=== PATIENT | male | born 1985 | race African-American/Black ===

== ENCOUNTER 2017-06-25 08:21 | Emergency (ER) | payer SELFPAY ==
--- NOTE | 2017-06-25 08:58 | RAD ---
2 VIEWS RIGHT TIBIA AND FIBULA: Date: 06/25/17 COMPARISON: None. HISTORY: Right lower leg pain since last night. FINDINGS: Two views of the right tibia/fibula show no evidence of acute fracture or dislocation. No focal soft tissue swelling is seen. No degenerative changes are seen in the knee or ankle. IMPRESSION: Unremarkable exam. POS: [facility]
== END 2017-06-25 09:55 | disposition home or self-care (01) ==
LOC: ERS 08:21
DX: S80.11XA Contusion of right lower leg, initial encounter (principal); F41.9 Anxiety disorder, unspecified; F17.210 Nicotine dependence, cigarettes, uncomplicated; W10.9XXA Fall (on) (from) unspecified stairs and steps, initial encounter

== ENCOUNTER 2018-01-21 20:06 | Inpatient (IN) | payer SELFPAY ==
[2018-01-21] MEDS ORDERED: Propofol 1,000 MG/100 ML VIAL IV ONE ×2 (20:09→23:07)
[2018-01-21] MEDS ORDERED: fentaNYL Citrate/PF 2,000 MCG in Sodium Chloride 0.9% 60 ML IV SCH (20:13)
[2018-01-21 20:37] LABS: Hemoglobin 15.5 g/dL (14.0-18.0); Mean Corpuscular HGB CONC 33.5 g/dL (32.0-36.0); Mean Corpuscular Hemoglobin 29.4 pg (27.0-31.0); Mean Corpuscular Volume 87.6 fL (78.0-98.0); RBC Distribution Width 12.3 % (11.5-14.5); White Blood Cell (WBC) Count 11.9 thou/uL (4.8-10.8)
[2018-01-21 20:39] LABS: Bilirubin Negative (Negative); Blood, Urine Negative (Negative); Clarity CLEAR (Clear); Glucose, Urine (Dipstick) 100 mg/dL (Negative); Leukocyte Negative (Negative); Nitrite Negative (Negative); Protein, Urine (Dipstick) Negative (Neg-Trace); Specific Gravity, Urine 1.018 (1.002-1.036); Urobilinogen 0.2 mg/dL (0.2-1.0)
[2018-01-21 20:44] LABS: CO2 Tension 40.5 mmHg (35.0-45.0); pH, Arterial 7.41 (7.35-7.45)
[2018-01-21 20:45] LABS: Base Excess (BEa) 0.3 mEq/L (-2.0 to +3.0); Hemoglobin (Hb) 15.1 g/dL (14.0-18.0)
[2018-01-21 20:46] LABS: Analyzer IN Cardio ER; Calcium, Ionized 1.2 mmol/L (1.12-1.30); Puncture Site LRA
[2018-01-21 20:47] LABS: ALV-art Gradient 293.175 (0-20)
[2018-01-21 20:48] LABS: Amphetamine Detected (NotDetected); Barbiturates Screen Not Detected (NotDetected); Benzodiazepine Screen Not Detected (NotDetected); Cocaine Metabolite Screen Not Detected (NotDetected); Medtox Control Line Valid? VALID (VALID); Medtox Reader # READER 1; Methadone Not Detected (NotDetected); Methamphetamine Not Detected (NotDetected); Opiate Screen Not Detected (NotDetected); Oxycodone Screen Not Detected (NotDetected); Phencyclidine (PCP) Not Detected (NotDetected); THC/Cannabinoid Screen Not Detected (NotDetected); Tricyclic Screen Not Detected (NotDetected)
[2018-01-21 20:48] LABS: Acetaminophen Less than 6.0 mcg/mL (10.0-30.0); Alcohol Less than 10 mg/dL (Less than 10); Salicylate Less than 8.0 mg/dL (15.0-30.0)
[2018-01-21 20:50] LABS: ALT (SGPT) 23 U/L (8-55); AST (SGOT) 17 U/L (5-34); Albumin 4.2 g/dL (3.5-5.0); Alkaline Phosphatase 37 U/L (40-150); Anion Gap 14 mmol/L (10-20); BUN (Urea Nitrogen) 8 mg/dL (8.9-20.6); Bilirubin, Total 0.8 mg/dL (0.2-1.2); CK (CPK) 220 U/L (30-200); Calc. Creatinine Clearance 0 mL/min (70-130); Calcium 9.3 mg/dL (7.8-10.44); Carbon Dioxide 22 mmol/L (22-29); Chloride 105 mmol/L (98-107); Estimated GFR-MDRD Greater than 90; Glucose 143 mg/dL (70-105); Potassium 3.6 mmol/L (3.5-5.1); Protein, Total 7.2 g/dL (6.0-8.3); Sodium 137 mmol/L (136-145)
[2018-01-21 20:56] LABS: #Lymphocytes 0.9 thou/uL (1.20-3.40); #Monocytes 0.4 thou/uL (0.11-0.59); #Neutrophils 10.5 thou/uL (1.40-6.50); %Basophils 0.2 % (0.0-1.0); %Eosinophils 0.4 % (0.0-10.0); %Lymphocytes 7.5 % (21.0-51.0); %Monocytes 3.6 % (0.0-10.0); %Neutrophils 88.4 % (42.0-75.0); Mean Platelet Volume 9.7 fL (7.4-10.4); PLT Morphology Comment Appears Decreased; Platelet Count 112 thou/uL (130-400)
--- NOTE | 2018-01-21 21:15 | RAD ---
RADIOGRAPH CHEST 1 VIEW: Date: 01/21/18 Time: 8:25 p.m. HISTORY: 32-year-old male in respiratory failure, status post intubation. Possible drug overdose. COMPARISON: None available. FINDINGS: Endotracheal tube distal tip is at the origin of the right mainstem bronchus. There is a small area o f atelectasis at the medial base of the left lower lobe. This is a supine image, which would be insen sitive for pneumothorax detection. There is a gaseous distention of the stomach. The rest of the visu alized lung yanez are grossly clear. IMPRESSION: 1. endotracheal tube distal tip at the origin of the right mainstem bronchus. 2. At least mild left lower lobe atelectasis (vs aspiration). 3. Gaseous gastric distention. JN [] POS: JIN
--- NOTE | 2018-01-21 21:38 | RAD ---
FRONTAL VIEW CHEST: 01/21/18 COMPARISON: Earlier same day. CLINICAL HISTORY: Intubation, tube adjustment followup. FINDINGS: There is an endotracheal tube present, which has been retracted, with tip at the level of the thoraci c inlet. Enteric catheter traverses to the central abdomen at midline. IMPRESSION: Interval revision of supportive tubes, as above. Incidental note of basilar density on the left, which obscures the left hemidiaphragm. This may rela te to atelectasis and/or component of pneumonia. This is not reliably assessed on the basis of this e xam. Recommend continued chest radiographic followup. POS: [facility]
--- NOTE | 2018-01-21 22:11 | PDOC.FPRHP ---
- History of Present Illness Chief Complaint: Found down, possible overdose History of Present Illness: Patient is a 32YO AAM with a PMH significant for depression, anxiety, suicidal ideation, & ADHD who was brought to the ED by EMS after being found down in his home unresponsive. Per EMS, family called because patient was unresponsive 2/2 a suspected overdose that they presumed to be from Xyprexa as an empty prescription bottle with the patient's name on it was found at the scene. Family provided additional history at the bedside stating that the patient has an extensive psychiatric history as he has problems with anger and has suffered from severe depression for the past four years. The mother stated that the patient has told her several times that he often has thoughts of ending his life. The patient last communicated with his mother around 16:00 today via a phone conversation and stated that he planned to kill himself slowly by taking a bottles pills. The patient was found down by his stepfather around 18:30 today in their home lying on the floor. The stepfather says that he noticed some blood and vomit around his mouth but there was no evidence that he lost control of his bladder or bowels. The stepfather tried shaking and prodding him to arouse him but the patient was totally limp and unresponsive so EMS was called. Per the parents, the patient has never attempted suicide before today and has only has suicidal thoughts. ED Course: Routine labs were drawn including a CBC & CMP. A CK & UDS were also obtained. A CXR & head CT were also done. - Allergies/Adverse Reactions Allergies Allergy/AdvReac Type Severity Reaction Status Date / Time No Known Drug Allergies Allergy Verified 01/22/18 02:11 - Home Medications Medication Instructions Recorded Confirmed Type OLANZapine [Zyprexa] 10 mg PO HS 01/22/18 01/22/18 History - History PMHx: Per family depression, anxiety, possible bipolar or other psychiatric disorder, ADHD & h/o infantile seizures. 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 FHx: Mother- HTN h/o of mental illness in patient's first cousin. Social: Smokes 1/2ppd per chart review. - Review of Systems ROS unobtainable: due to mental status - Vital signs BP: 113/64 HR: 86 RR: Tmax: Pox: 95% on ventilator set on SIMV mode at 15 & PEEP of 5 Wt: 99kg - Physical Exam Constitutional: other (Intubated and sedated. Dried blood and vomitus around mouth and in ventilator tubing.) HEENT: normocephalic and atraumatic, other (Conjunctival injection bilaterally. Pupils fixed and constricted 2/2 sedation.) Heart: RRR, normal S1/S2, no murmurs/rubs/gallops, no edema Lungs: other (Coarse breath sounds throughout 2/2 ventilation.) Abdomen: soft, bowel sounds present, no masses/distention Musculoskeletal: normal structure Skin: no rash/lesions, good turgor Heme/Lymphatic: no unusual bruising or bleeding, no purpura FMR H&P: Results - Labs Result Diagrams: 01/22/18 04:31 01/22/18 04:31 Lab results: WBC 11.9 thou/uL (4.8-10.8) H 01/21/18 20:25 Hgb 15.5 g/dL (14.0-18.0) 01/21/18 20:25 Hct 46.4 % (42.0-52.0) 01/21/18 20:25 MCV 87.6 fL (78.0-98.0) 01/21/18 20:25 Plt Count 112 thou/uL (130-400) L 01/21/18 20:25 Neutrophils % 88.4 % (42.0-75.0) H 01/21/18 20:25 ABG pH 7.41 (7.35-7.45) 01/21/18 20:37 ABG pCO2 40.5 mmHg (35.0-45.0) 01/21/18 20:37 ABG pO2 81.0 mmHg (80.0-100.0) 01/21/18 20:37 Sodium 137 mmol/L (136-145) 01/21/18 20:25 Potassium 3.6 mmol/L (3.5-5.1) 01/21/18 20:25 Chloride 105 mmol/L (98-107) 01/21/18 20:25 Carbon Dioxide 22 mmol/L (22-29) 01/21/18 20:25 BUN 8 mg/dL (8.9-20.6) L 01/21/18 20:25 Creatinine 0.92 mg/dL (0.6-1.3) 01/21/18 20:25 Glucose 143 mg/dL (70-105) H 01/21/18 20:25 Calcium 9.3 mg/dL (7.8-10.44) 01/21/18 20:25 Total Bilirubin 0.8 mg/dL (0.2-1.2) 01/21/18 20:25 AST 17 U/L (5-34) 01/21/18 20:25 ALT 23 U/L (8-55) 01/21/18 20:25 Alkaline Phosphatase 37 U/L (40-150) L 01/21/18 20:25 Creatine Kinase 220 U/L (30-200) H 01/21/18 20:25 Serum Total Protein 7.2 g/dL (6.0-8.3) 01/21/18 20:25 Albumin 4.2 g/dL (3.5-5.0) 01/21/18 20:25 Urine Ketones Negative mg/dL (Negative) 01/21/18 20:28 Urine Blood Negative (Negative) 01/21/18 20:28 Urine Nitrite Negative (Negative) 01/21/18 20:28 Ur Leukocyte Esterase Negative (Negative) 01/21/18 20:28 - Radiology Interpretation Chest x-ray Status: report reviewed by me (Mild LLL atelectasis vs. PNA) CT scan - head Status: report reviewed by me (No acute intracranial findings. Subluxation of L TMJ.) FMR H&P: A/P - Problem List (1) Suicidal behavior with attempted self-injury Current Visit: Yes Status: Acute Code(s): T14.91XA - SUICIDE ATTEMPT, INITIAL ENCOUNTER (2) Overdose Current Visit: Yes Status: Acute Code(s): T50.901A - POISONING BY UNSP DRUG/ MEDS/BIOL SUBST, ACCIDENTAL, INIT Qualifiers: Injury intent: intentional self-harm (3) Depression Current Visit: Yes Status: Chronic Code(s): F32.9 - MAJOR DEPRESSIVE DISORDER, SINGLE EPISODE, UNSPECIFIED (4) ADHD Current Visit: Yes Status: Chronic - Plan 32YO AAM with PMH significant for depression, anxiety, and suicidal ideation who was brought to the ED by EMS after being found down in his home after what appeared to be an attempted suicide attempt by intentional overdose. 1. Overdose: - UDS + only for amphetamines. Overdose was likely with Xyprexa which was found at the scene. - Will continue supportive care with ventilation support and IVFs & wean as tolerated. - Will trend CK & get AM CBC & BMP. - Will consult MR once patient is alert and medically stable. 2. Depression: - No known antidepressant medications. - Will address once patient is alert. 3. Anxiety: - No known anxiolytic medications. - Will address once patient is alert. 4. ADHD: - Do not know dosage of amphetamine patient is prescribed. - Will address once patient is alert. FMR H&P: Upper Level - Plan Date/Time: 01/21/18 2209 I, Roopa Santillan, have evaluated this patient and agree with findings/plan as outlined by international trade teacher resident. Pertinent changes/additions are listed here. 1. Acute hypoxic respiratory failure. - likely secondary to acute intoxication - patient intubated and sedated in the field. - will admit patient to ICU. Pulmonology has been consulted - Vent management per Pulm 2. Acute intoxication - 2/2 intentional overdose of Zyprexa. - continue supportive care. - [facility] consultation when medically stable. DVT Proph: Lovenox. Attending Addendum - Attending Addendum Date/Time: 01/22/18 1700 (please note seen on 01/21, note not sent to me until after the shift) I personally evaluated the patient and discussed the management with Dr. Jimenez and Jacque. I agree with and repeated the History, Examination, Assessment and Plan documented above with any addition or exceptions noted below. Acute encephalopathy with acute hypoxic hypercapneic respiratory failure likely 2/2 zyprexa overdose + suspected amphetamine use -lung protective ventilation, wean sedation and ventilatory support as tolerated -discussed with family in detail at bedside -poison control contacted, supportive care recommended Left TMJ subluxation on CT scan -symmetric jaw on exam with no restriction in motion besides that provided by the rather large bite block -ask RT to reevaluate when change ETT white and will check out to day team as well
--- NOTE | 2018-01-21 22:14 | CT ---
CT BRAIN NONCONTRAST: 01/21/18 HISTORY: 32-year-old male with altered mental status. FINDINGS: There is no midline shift or any other mass effect. There is no evidence of acute intracranial hemor rhage, large cortical infarct, obstructive hydrocephalus, or extraaxial fluid collection. The calvar ium is intact. The left mandibular condyle is anteriorly subluxed relative to the glenoid fossa. This could be due to an open jaw, but this appears to be asymmetrically greater on the left compared to t he right. Clinical correlation is recommended. There is fluid filling the entire nasopharyngeal airwa y, contiguous with such fluid severely partially opacifying the bilateral nasal cavities. IMPRESSION: 1. No acute intracranial findings. 2. Subluxation of left temporomandibular joint. cynthia wright POS: [facility]
[2018-01-21] MEDS ORDERED: CCU Electrolyte Replacement 1 EACH IVPB SCH (22:54)
[2018-01-21] MEDS ORDERED: Ventilator Sedation Protocol 1 EACH FS SCH (23:00)
[2018-01-21] MEDS ORDERED: Lorazepam 2 MG/ML VIAL SLOW IVP PRN (23:06)
[2018-01-21] MEDS ORDERED: Potassium Phosphate 9 MMOL in Sodium Chloride 0.9% 100 ML IVPB PRN (23:06)
[2018-01-21] MEDS ORDERED: Potassium Phosphate 12 MMOL in Sodium Chloride 0.9% 250 ML 250 ML IV PRN (23:06)
[2018-01-21] MEDS ORDERED: Potassium Phosphate 15 MMOL in Sodium Chloride 0.9% 250 ML 250 ML IV PRN (23:06)
[2018-01-21] MEDS ORDERED: Fentanyl BOLUS 250 ML IVPB PRN (23:06)
[2018-01-21] MEDS ORDERED: Potassium Chloride 40 MEQ in Sodium Chloride 0.9% 250 ML 250 ML IVPB PRN (23:06)
[2018-01-21] MEDS ORDERED: Propofol BOLUS 1,000 MG/100 ML VIAL IV PRN (23:06)
[2018-01-21] MEDS ORDERED: Potassium Chloride 20 MEQ TAB PO PRN (23:06)
[2018-01-21] MEDS ORDERED: Magnesium Oxide 400 MG TAB PO PRN ×2 (23:06)
[2018-01-21] MEDS ORDERED: Magnesium 2 GM/NS 0.9% 100 ML 2 GM in Premix Bag 1 BAG IVPB PRN (23:06)
[2018-01-21] MEDS ORDERED: CCU ELECTROLYTE REPLACEMENT PROTOCOL FS PRN (23:06)
[2018-01-21] MEDS ORDERED: DISCONTINUE PREVIOUS NARCOTIC PAIN MEDICATIONS AND BENZODIAZEPINES FS SCH (23:06)
[2018-01-21] MEDS ORDERED: Potassium Chloride 40 MEQ in Premix Bag 1 BAG IVPB PRN (23:06)
[2018-01-22] MEDS: Propofol 1,000 MG/100 ML VIAL IV PRN ×3 (02:00→17:45)
[2018-01-22] MEDS: Lactated Ringer's 1,000 ML IV SCH ×3 (02:49→16:07)
[2018-01-22 05:32] LABS: #Lymphocytes 0.8 thou/uL (1.20-3.40); #Monocytes 0.4 thou/uL (0.11-0.59); %Basophils 0.1 % (0.0-1.0); %Eosinophils 0.5 % (0.0-10.0); %Lymphocytes 10.1 % (21.0-51.0); %Monocytes 4.3 % (0.0-10.0); Hemoglobin 15.1 g/dL (14.0-18.0); Mean Corpuscular HGB CONC 33.7 g/dL (32.0-36.0); Mean Corpuscular Hemoglobin 29.6 pg (27.0-31.0); Mean Corpuscular Volume 87.7 fL (78.0-98.0); Platelet Count 98 thou/uL (130-400); RBC Distribution Width 12.3 % (11.5-14.5); Red Blood Cell (RBC) Count 5.09 mill/uL (4.70-6.10); White Blood Cell (WBC) Count 8.2 thou/uL (4.8-10.8)
[2018-01-22 05:35] LABS: Anion Gap 14 mmol/L (10-20); BUN (Urea Nitrogen) 6 mg/dL (8.9-20.6); CK (CPK) 400 U/L (30-200); Calc. Creatinine Clearance 191 mL/min (70-130); Calcium 8.6 mg/dL (7.8-10.44); Carbon Dioxide 22 mmol/L (22-29); Chloride 108 mmol/L (98-107); Estimated GFR-MDRD Greater than 90; Glucose 87 mg/dL (70-105); Potassium 3.8 mmol/L (3.5-5.1); Sodium 140 mmol/L (136-145)
--- NOTE | 2018-01-22 06:57 | PDOC.FM ---
- Subjective Subjective: This is a 32 yo M here for likely olanzapine overdose due to suicide attempt. Pt intubated and sedated by EMS while in route to ER via air. Since then he remains intubated, however all sedation is off at this time. Otherwise, no change since admission. - Objective MAR Reviewed: Yes Vital Signs & Weight: Vital Signs (12 hours) Temp Pulse Resp BP Pulse Ox 01/22/18 05:57 18 01/22/18 04:00 98.8 F 25 H 01/22/18 02:10 100 123/68 99 01/22/18 02:00 98.6 F 100 15 98 01/22/18 01:50 100 01/21/18 23:03 18 Weight Weight 99.5 kg Most Recent Monitor Data Heart Rate from ECG 103 NIBP 136/88 NIBP BP-Mean 94 Respiration from ECG 24 SpO2 98 I&O: 01/20/18 01/21/18 01/22/18 06:59 06:59 06:59 Intake Total 500 Output Total 800 Balance -300 Result Diagrams: 01/22/18 04:31 01/22/18 04:31 Radiology Reviewed by me: Yes (ET Tube at nadya, possible infiltrate in lower lobes) <Jorge L Vickers - Last Filed: 01/22/18 06:59> - Objective Vital Signs & Weight: Vital Signs (12 hours) Temp Pulse Resp BP Pulse Ox 01/22/18 10:45 104 H 112/66 01/22/18 10:00 20 01/22/18 09:27 111 H 130/80 01/22/18 08:00 103.3 F H 108 H 19 96 01/22/18 07:37 103 H 132/84 01/22/18 07:00 103.3 F H 01/22/18 05:57 18 01/22/18 04:00 98.8 F 25 H 01/22/18 02:10 100 123/68 99 01/22/18 02:00 98.6 F 100 15 98 01/22/18 01:50 100 Weight Admit Weight 99.5 kg Weight 99.5 kg Most Recent Monitor Data Heart Rate from ECG 102 NIBP 97/60 NIBP BP-Mean 73 Respiration from ECG 19 SpO2 96 I&O: 01/21/18 01/22/18 01/23/18 06:59 06:59 06:59 Intake Total 500 Output Total 800 790 Balance -300 -790 Result Diagrams: 01/22/18 04:31 01/22/18 04:31 <VladCharbel Goldie - Last Filed: 01/22/18 12:05> Phys Exam - Physical Examination Intubated, unresponsive to command off sedation. Responds only to pain GCS 5 Pupils pinpoint Respiratory: clear to auscultation bilateral Cardiovascular: RRR, no significant murmur Gastrointestinal: soft, no distention, positive bowel sounds Musculoskeletal: no edema, pulses present GCS 5 as above. Flexion to pain, Corneal reflex intact Skin: no rash, normal turgor <Jorge L Vickers - Last Filed: 01/22/18 06:59> Dx/Plan (1) Overdose Code(s): T50.901A - POISONING BY UNSP DRUG/MEDS/BIOL SUBST, ACCIDENTAL, INIT Status: Acute Qualifiers: Injury intent: intentional self-harm (2) Aspiration pneumonitis Code(s): J69.0 - PNEUMONITIS DUE TO INHALATION OF FOOD AND VOMIT Status: Suspected (3) Suicidal behavior with attempted self-injury Code(s): T14.91XA - SUICIDE ATTEMPT, INITIAL ENCOUNTER Status: Acute (4) TMJ dislocation Code(s): S03.00XA - DISLOCATION OF JAW, UNSPECIFIED SIDE, INITIAL ENCOUNTER Status: Suspected (5) ADHD Status: Chronic (6) Depression Code(s): F32.9 - MAJOR DEPRESSIVE DISORDER, SINGLE EPISODE, UNSPECIFIED Status : Chronic (7) Elevated CK Status: Acute (8) Methamphetamine use Code(s): F15.10 - OTHER STIMULANT ABUSE, UNCOMPLICATED Status: Suspected - Plan Plan: This is a 32 yo M being admitted for suspected olanzapine overdose following suicide attempt. Consults: Pulm, OMFS STABBER Pt is currently not sedated with a GCS of 5. At the time of admission he was sedated with fentanyl and propofol. These were both dc'd aroun 0600 this am. Currently CN reflexes are intact, however pt will only respond to pain. While this may represent continued effects of sedation and olanzapine, pt had hx of seizure while in route to this facility for a significant period of time. These seizures are the most likely source of elevated CK. Continue to monitor status , titrate sedation to RASS of 0-1 if needed. - Sedation: none Resp CXR is concerning for infiltrate, this most likely represents aspiration pneumonitis given hx of seizure and significant food like material suctioned from tube over night. Vitals and WBC count are not consistent with infection at this time. Pt is periodically over breathing the vent - Vent settings: rate 14, 450 ml tidal volume, 10 mm H2o pressure support, 40% O2 CV BP WNL, no murmurs or hx of cardiac hx. GI OG tube in place, consider starting tube feeds today Hematologic H&H stable /Renal Output has averaged over 100 mL/hr. On maintenance rate of 140 ml/hr of LR - I/O: balance -300 mL Infection No current concerns for infection, will continue to monitor development of possible aspiration PNA Lines/Tubes: ET tube in place on 01/22, G[place] in place on 01/22 Code status: Full PPx: SCD, lovenox Dispo: Guarded, will continue to monitor improvement over the course of the day. Will consider weaning off of vent as mental status improves. <Jorge L Vickers - Last Filed: 01/22/18 06:59> Attending Addendum - Attending Addendum Date/Time: 01/22/18 1204 I personally evaluated the patient and discussed the management with Dr. Vickers this morning. I agree with the History, Examination, Assessment and Plan documented above with any addition or exceptions noted below. <Charbel Chu - Last Filed: 01/22/18 12:05>
--- NOTE | 2018-01-22 08:44 | RAD ---
CHEST 1 VIEW: HISTORY: Altered mental status. Respiratory distress. Intubated patient. COMPARISON: 01/21/18. FINDINGS: Portable supine chest radiograph demonstrates endotracheal tube at the level of the clavicles. Nasog astric tube extends beyond the diaphragm. The distal tip is not seen. There is interval development of opacities in the lung parenchyma suggesting pleural effusion with ad jacent parenchymal changes. No pneumothorax on the supine projection. No osseous abnormalities. IMPRESSION: Interval pleural and parenchymal changes. Continued surveillance is recommended. POS: [facility]
[2018-01-22] MEDS: Acetaminophen 650 MG Suppository PR PRN ×3 (08:52→22:30)
[2018-01-22] MEDS: Enoxaparin Sodium 40 MG/0.4 ML SYRINGE SC SCH (09:19)
[2018-01-22] MEDS: Ampicillin/Sulbactam 1.5 GM in Sodium Chloride 0.9% 100 ML IVPB SCH ×3 (12:25→23:00)
--- NOTE | 2018-01-22 21:05 | CON ---
DATE OF CONSULTATION: 01/22/2018 SERVICE: Pulmonary medicine. REASON FOR CONSULTATION: Intubated patient. HISTORY OF PRESENT ILLNESS: Patient is a 32-year-old -[place] male with past medical history significant for major depressive disorder who overdosed on Adderall, and anti-depression medication. Ultimately, he was very obtunded. EMS services were contacted. He was brought to the emergency department and had seizure-like activity enroute. He ultimately got intubated. He never lost pulse or required any chest compressions, but did have respiratory failure. In the emergency department, he was stabilized and subsequently tucked into the ICU. Shortly after presentation, he did have a brief episode of hypotension, but this has subsequently resolved. There has been no other interval changes to his condition over the last 24 hours and we do not have any reports of him being sick prior to this event. PAST MEDICAL HISTORY: 1. Major depressive disorder. 2. Anxiety disorder. 3. Attention deficit hyperactivity disorder. 4. History of seizure disorder such as an infant. PAST SURGICAL HISTORY: Repair of pyloric stenosis. FAMILY HISTORY: Noncontributory. SOCIAL HISTORY: He smokes half pack on daily basis, but otherwise it is unknown. ALLERGIES: No known drug allergies. MEDICATIONS: List of his inpatient medications were reviewed. Multiple updates were made at this time. REVIEW OF SYSTEMS: This cannot be obtained as the patient is currently intubated and sedated. PHYSICAL EXAMINATION: VITAL SIGNS: Afebrile with a T-max 103.3, current temperature 100.2, pulse 70, blood pressure 102/60, respirations 18, saturation 98% on 27% FiO2. HEENT: Normocephalic, atraumatic. Sclerae are white, conjunctivae pink. Oral and nasal mucosa is moist without lesions. LUNGS: Excellent air entry. Rhonchi are present. There is no prolonged expiratory phase or wheezing appreciated. HEART: Normal rate, regular. ABDOMEN: Soft, nontender, nondistended. Bowel sounds are positive. MUSCULOSKELETAL: No cyanosis or clubbing. There is no pitting in the bilateral lower extremities. NEUROLOGIC: Grossly nonfocal. Specifically, the pupils are equal, round, and reactive. They go from 3-2 mm with light. Doll's eyes are normal. He has a normal gag and cough. He is overbreathing the ventilator comfortably. On sedation holiday, he has been witnessed to move all 4 extremities spontaneously , but is not doing anything of purpose yet. He thrashes about but will not follow commands. LABORATORY DATA: WBC 8.2, hemoglobin 15.1, platelets 98,000. PH 7.41, pCO2 of 40, pO2 of 81. Basic metabolic profile is essentially unremarkable. CK is 400 , now up trending. Liver function studies are unremarkable. Urinalysis is negative. Amphetamines are positive on the urine drug screen. That being said , alcohol, acetaminophen, and salicylates are unremarkable. Respiratory culture is negative to date. IMAGING: Chest x-ray demonstrates multifocal infiltrates, which are patchy. There are a little bit worse on the right compared to the left. There is possible volume loss in the right side as well. Enteric catheter courses below the level of the diaphragm. There is an endotracheal tube, which terminates roughly 4 cm above the ramone. CT of brain demonstrates no acute intracranial abnormality. There is subluxation of the left temporomandibular joint. ASSESSMENT: 1. Acute hypoxic respiratory failure. 2. Aspiration pneumonitis versus community-acquired pneumonia likely secondary to overt aspiration. 3. Seizure disorder, possible. 4. Metabolic encephalopathy. 5. Intentional drug overdose with antipsychotic and/or Adderall, DISCUSSION, AND PLAN: We will give the patient another 24 hours to settle down. We will check his mentation in the morning and provide him with a spontaneous breathing trial. If he does well, extubation will be considered. On initiate Unasyn to cover aspiration related disease processes. Pulmonary Critical Care will continue to follow along in this location, but hopefully, he will make a full neurologic recovery. The family is hoping for the best, but understand that in these situations, sometimes the brain does not make a full recovery and only time will tell. Critical care time: 30 minutes. MYRA
[2018-01-23] MEDS: Lactated Ringer's 1,000 ML IV SCH ×3 (01:12→18:23)
[2018-01-23] MEDS: Ampicillin/Sulbactam 1.5 GM in Sodium Chloride 0.9% 100 ML IVPB SCH ×4 (05:00→23:48)
[2018-01-23 05:44] LABS: Anion Gap 14 mmol/L (10-20); BUN (Urea Nitrogen) 6 mg/dL (8.9-20.6); CK (CPK) 370 U/L (30-200); Calc. Creatinine Clearance 164 mL/min (70-130); Calcium 9.2 mg/dL (7.8-10.44); Carbon Dioxide 25 mmol/L (22-29); Chloride 105 mmol/L (98-107); Estimated GFR-MDRD Greater than 90; Glucose 81 mg/dL (70-105); Potassium 3.6 mmol/L (3.5-5.1); Sodium 140 mmol/L (136-145)
[2018-01-23] MEDS: Acetaminophen 650 MG Suppository PR PRN ×2 (05:57→11:05)
[2018-01-23 05:58] LABS: Band 11 % (5-11); Eosinophils 1 % (0-10); Hemoglobin 14.8 g/dL (14.0-18.0); Lymphocytes 7 % (21-51); MDiff Complete? YES; Mean Corpuscular HGB CONC 33.5 g/dL (32.0-36.0); Mean Corpuscular Hemoglobin 29.6 pg (27.0-31.0); Mean Corpuscular Volume 88.4 fL (78.0-98.0); Mean Platelet Volume 10.5 fL (7.4-10.4); Monocytes 2 % (0-10); Neutrophil 79 % (42-75); PLT Morphology Comment Appears Decreased; Platelet Count 88 thou/uL (130-400); RBC Distribution Width 12.4 % (11.5-14.5); White Blood Cell (WBC) Count 14.4 thou/uL (4.8-10.8)
--- NOTE | 2018-01-23 06:47 | PDOC.FM ---
- Subjective Subjective: 32 yo M here with acute toxic encephalopathy and acute hypoxic respiratory failure secondary to Zyprexa overdose. Pt has CPAP trial for 1 hour yesterday. Pt reacts violently and pulls at tubes when given sedation break, however his mentation is minimal at during those times. Thus, pt was sedated. No acute events over night. - Objective MAR Reviewed: Yes Vital Signs & Weight: Vital Signs (12 hours) Temp Pulse Resp BP Pulse Ox 01/23/18 06:00 14 01/23/18 05:30 14 01/23/18 04:49 96 01/23/18 04:00 14 01/23/18 02:40 98 123/81 01/23/18 02:00 14 01/23/18 00:00 17 01/22/18 22:17 101 H 129/72 01/22/18 22:00 18 01/22/18 20:00 101.0 F H 97 14 100 Weight Admit Weight 99.5 kg Weight 99.3 kg Most Recent Monitor Data Heart Rate from ECG 98 NIBP 126/82 NIBP BP-Mean 102 Respiration from ECG 14 SpO2 97 I&O: 01/21/18 01/22/18 01/23/18 06:59 06:59 06:59 Intake Total 500 1927 Output Total 800 2991 Balance -300 -3754 Result Diagrams: 01/23/18 04:48 01/23/18 04:48 <Jorge L Vickers - Last Filed: 01/23/18 07:24> - Objective Vital Signs & Weight: Vital Signs (12 hours) Temp Pulse Resp BP Pulse Ox 01/23/18 12:00 96 01/23/18 10:41 103 H 170/93 H 01/23/18 10:00 13 01/23/18 08:53 111 H 18 99 01/23/18 08:00 100.8 F H 96 14 96 01/23/18 07:40 106 H 122/66 01/23/18 06:00 14 01/23/18 05:30 14 Weight Admit Weight 99.5 kg Weight 99.3 kg Most Recent Monitor Data Heart Rate from ECG 88 NIBP 155/84 NIBP BP-Mean 113 Respiration from ECG 22 SpO2 98 I&O: 01/22/18 01/23/18 01/24/18 06:59 06:59 06:59 Intake Total 500 4119.7 540 Output Total 800 3761 1165 Balance -300 358.7 -625 Result Diagrams: 01/23/18 04:48 01/23/18 04:48 <Charbel Chu - Last Filed: 01/23/18 17:09> Phys Exam - Physical Examination Intubated and sedated Pupils pinpoint and sluggish Neck: no JVD Rales throughout Cardiovascular: no significant murmur tachycardic Gastrointestinal: soft, no distention hypoactive bowel sounds Musculoskeletal: no edema Corneal reflex intact. Withdraws from pain. Otherwise unable to assess Skin: no rash, normal turgor <Jorge L Vickers - Last Filed: 01/23/18 07:24> Dx/Plan (1) Overdose Code(s): T50.901A - POISONING BY UNSP DRUG/MEDS/BIOL SUBST, ACCIDENTAL, INIT Status: Acute Qualifiers: Injury intent: intentional self-harm (2) Suicidal behavior with attempted self-injury Code(s): T14.91XA - SUICIDE ATTEMPT, INITIAL ENCOUNTER Status: Acute (3) TMJ dislocation Code(s): S03.00XA - DISLOCATION OF JAW, UNSPECIFIED SIDE, INITIAL ENCOUNTER Status: Suspected (4) ADHD Status: Chronic (5) Depression Code(s): F32.9 - MAJOR DEPRESSIVE DISORDER, SINGLE EPISODE, UNSPECIFIED Status : Chronic (6) Elevated CK Status: Acute (7) Methamphetamine use Code(s): F15.10 - OTHER STIMULANT ABUSE, UNCOMPLICATED Status: Suspected (8) Toxic encephalopathy Code(s): G92 - TOXIC ENCEPHALOPATHY Status: Acute (9) Acute respiratory failure with hypoxia Code(s): J96.01 - ACUTE RESPIRATORY FAILURE WITH HYPOXIA Status: Acute (10) Aspiration pneumonia Code(s): J69.0 - PNEUMONITIS DUE TO INHALATION OF FOOD AND VOMIT Status: Acute - Plan Plan: This is a 32 yo M being admitted for suspected olanzapine overdose following suicide attempt. 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 Unfortunately, his mentation is not adequate for extubation when not sedated. Cranial reflexes are intact, unclear what philosophy faculty member sequelae of possible anoxic brain injury may exist. Will attempt to reduce sedation again today. Resp Fever and elevated WBC count have developed over the past 24 hours. Pt was started on Unasyn yesterday. Cultures are pending. Pt is periodically over breathing the vent - Vent settings: rate 14, 450 ml tidal volume, 10 mm H2o pressure support, 35% O2 CV BP WNL, no murmurs or hx of cardiac hx. GI OG tube in place, consider starting tube feeds today Hematologic H&H stable /Renal Output has been over 30 mL/hr at times over 100. On maintenance rate of 140 ml/ hr of LR - I/O: balance +300 mL MSK Concern for possible jaw dislocation. Was seen by OMFS yesterday who will re evaluate after extubation Infection Likely aspiration pna, treat as above Lines/Tubes: ET tube in place on 01/22, Gaston in place on 01/22 Code status: Full PPx: SCD, lovenox Dispo: Guarded, will continue to monitor improvement over the course of the day. Will consider weaning off of vent as mental status improves. <Jorge L Vickers - Last Filed: 01/23/18 07:24> Attending Addendum - Attending Addendum Date/Time: 01/23/18 7147 I personally evaluated the patient and discussed the management with Dr. Vickers. I agree with the History, Examination, Assessment and Plan documented above with any addition or exceptions noted below. <Charbel Chu - Last Filed: 01/23/18 17:09>
[2018-01-23] MEDS: Enoxaparin Sodium 40 MG/0.4 ML SYRINGE SC SCH (07:45)
[2018-01-23] MEDS: Propofol 1,000 MG/100 ML VIAL IV PRN (07:45)
--- NOTE | 2018-01-23 08:18 | CON ---
DATE OF CONSULTATION: 01/22/2018 CONSULTING PHYSICIAN: Dr. Bailey. HISTORY OF PRESENT ILLNESS: This is a 32-year-old -[place]ian male with past medical history si gnificant for depression, anxiety, suicidal ideation and ADHD who was found down at home unresponsive . The patient was found by family after having threatened to commit suicide earlier in the day. An empty bottle of Zyprexa was found at the scene and it is felt that this was attempted overdose on. T he patient was intubated and brought to the emergency room for evaluation and subsequently admitted. His head CTs was read out as possibly showing signs of left TMJ subluxation. I was consulted for ev aluation. PAST MEDICAL HISTORY: Per hospital records includes depression, anxiety, possible bipolar or other p sychiatric disorders, ADHD, infantile seizures. PAST SURGICAL HISTORY: Pyloric stenosis. FAMILY HISTORY: Hypertension. SOCIAL HISTORY: Smokes half a pack per day of cigarettes. REVIEW OF SYSTEMS: Unobtainable secondary to patient being intubated and sedated. PHYSICAL EXAMINATION: VITAL SIGNS: Blood pressure 114/76, pulse 97, patient is intubated on the ventilator with oxygen sat uration of 96, respiratory rate 19, temperature 101. GENERAL: The patient is intubated and sedated. Per ICU nursing staff, the patient does not follow c ommands. When sedation is turned off, he does get combative and moves all extremities. HEAD AND NECK: The patient has oral endotracheal tube in place. He has no external signs of facial, neck or oral trauma. On manipulation of the lower jaw, the bilateral condyles appear to be seated i n the fossa and appear to be able to be manipulated both into the rotation and translation type movem ents. On exam, there is no obvious clinical abnormalities. IMAGING: CT scan of the head showed a partial view of the bilateral TM joints with the left condyle sitting anterior along the eminence, but no signs that the condyle was in front of the eminence in an abnormal position. The right condyle appears to be seated in the fossa well. ASSESSMENT: This is a 32-year-old male status post overdose with anterior position of the condyle on CT scan of the head, which appears likely due to him being open with the endotracheal tube and other tubes present in the mouth without any clear signs that the joint is truly subluxated or in patholog ic position or pathologic state. PLAN: 1. There are no signs of any intervention is indicated at this time. 2. If upon extubation, it is felt that the patient needs reevaluation for any sort of jaw abnormalit ies, discomfort, or malposition. Please reconsult me and I will take a look once the oral tubes are out of the way.
--- NOTE | 2018-01-23 08:53 | RAD ---
PORTABLE SEMIUPRIGHT FRONTAL CHEST RADIOGRAPH: 01/23/2018 HISTORY: Ventilated patient. COMPARISON: 01/22/2018 FINDINGS: An endotracheal tube projects over the tracheal column, terminating at the superior margin of the cla vicular heads. The nasogastric tube extends into the left upper quadrant. There is perihilar air sp mikey disease, right greater than left, extending into the right upper, right middle, and right lower l obe regions, as well as into the region of the left lower lobe, stable. IMPRESSION: Nonspecific bilateral air space disease, right greater than left, not significantly changed. POS: [facility]
--- NOTE | 2018-01-23 10:36 | PRG ---
DATE OF SERVICE: 01/23/2018 SERVICE: Pulmonary Medicine INTERVAL HISTORY: The patient is doing fine from a respiratory standpoint. He is breathing comfortably. Oxygen requirements are decreasing. This morning, we will give him a sedation holiday. He is still trying to come around from that. At one point, he sat up with a coughing fit, but after it cleared, he went back to sleep. He does have purposeful activity has been reaching up for his endotracheal tube. Otherwise, there has been no interval change to his condition, and he had no significant events overnight other than a receding temperature profile. LABORATORY: WBC 14.4, hemoglobin 14.8, platelets 88,000. Band count is 11% at this time. Basic metabolic profile is completely unremarkable. His potassium is 3.6. Urinalysis is negative. Urine drug screen is only positive for amphetamines, which likely is associated with the Ritalin. Respiratory culture is growing Staph aureus. Urine culture, blood cultures are otherwise unremarkable. IMAGING: Chest x-ray demonstrates right-sided lung infiltrate with no obvious pleural effusion present. ASSESSMENT: 1. Acute hypoxic respiratory failure. 2. Community-acquired pneumonia, likely a polymicrobial with Staph aureus growing in the culture medium. 3. Metabolic encephalopathy, improving. 4. Seizure disorder, possible. 5. Intentional drug overdose with antipsychotic and/or Adderall. DISCUSSION AND PLAN: We are going to put him on spontaneous breathing trial. We are going to continue a sedation holiday. Hopefully, he will wake up smoothly and we can consider extubating him shortly. I will add a TSH to his laboratories. Potassium will be replaced today with one IV dose. Pulmonary Critical Care will continue to follow along in this location. Critical care time: 30 minutes. MTDD
[2018-01-23] MEDS: Pantoprazole 40 MG VIAL IVP SCH (11:04)
[2018-01-23] MEDS: Haloperidol Lactate 5 MG/ML VIAL IM PRN (16:43)
[2018-01-23] MEDS: Lorazepam 2 MG/ML VIAL SLOW IVP PRN ×2 (16:46→22:59)
[2018-01-23] MEDS ORDERED: Acetaminophen 500 MG TAB PO PRN (17:37)
[2018-01-23] MEDS: Vancomycin HCl 1.5 GM in Sodium Chloride 0.9% 250 ML 300 ML IVPB SCH (18:14)
[2018-01-24] MEDS: Lactated Ringer's 1,000 ML IV SCH (03:39)
[2018-01-24] MEDS: Vancomycin HCl 1.5 GM in Sodium Chloride 0.9% 250 ML 300 ML IVPB SCH (05:33)
[2018-01-24] MEDS: Ampicillin/Sulbactam 1.5 GM in Sodium Chloride 0.9% 100 ML IVPB SCH (05:35)
[2018-01-24 06:27] LABS: Free T4 (Free Thyroxine) 0.99 ng/dL (0.70-1.48)
[2018-01-24 06:28] LABS: Hep C IgG Ab Non-Reactive (NonReactive); Hep C Index 0.16 S/CO (0-0.79)
--- NOTE | 2018-01-24 06:57 | PDOC.FM ---
- Subjective Subjective: Pt was extubated yesterday. During the evening he needed Haldol and ativan to to agitation. This morning pt is drowsy, but abusable. He denies complaints such as pain or SOB. - Objective MAR Reviewed: Yes Vital Signs & Weight: Vital Signs (12 hours) Temp Pulse Resp Pulse Ox 01/24/18 04:00 99.6 F 94 L 01/23/18 23:00 99.8 F H 01/23/18 20:00 99.9 F H 01/23/18 19:26 103.9 F H 117 H 34 H 95 Weight Admit Weight 99.5 kg Weight 95.3 kg Most Recent Monitor Data Heart Rate from ECG 107 NIBP 141/89 NIBP BP-Mean 106 Respiration from ECG 40 SpO2 94 I&O: 01/22/18 01/23/18 01/24/18 06:59 06:59 06:59 Intake Total 500 4119.7 2256 Output Total 800 3761 3985 Balance -300 358.7 -1729 Result Diagrams: 01/23/18 04:48 01/23/18 04:48 <Jorge L Vickers - Last Filed: 01/24/18 06:54> - Objective Vital Signs & Weight: Vital Signs (12 hours) Temp Pulse Resp Pulse Ox 01/25/18 07:26 98.9 F 95 24 H 96 01/25/18 04:00 99.0 F 01/25/18 00:00 99.8 F H Weight Admit Weight 99.5 kg Weight 95.3 kg Most Recent Monitor Data Heart Rate from ECG 80 NIBP 143/82 NIBP BP-Mean 114 Respiration from ECG 34 SpO2 91 I&O: 01/24/18 01/25/18 01/26/18 06:59 06:59 06:59 Intake Total 2256 2033 240 Output Total 3985 1175 Balance -1729 858 240 Result Diagrams: 01/25/18 04:47 01/25/18 04:47 <Charbel Chu - Last Filed: 01/25/18 10:31> Phys Exam - Physical Examination Constitutional: NAD HEENT: moist MMs Respiratory: clear to auscultation bilateral Cardiovascular: no significant murmur tachycardic Gastrointestinal: soft, non-tender, no distention, positive bowel sounds Musculoskeletal: no edema Neurological: moves all 4 limbs Deviation from normal: A&O x2 Skin: no rash, normal turgor <Jorge L Vickers - Last Filed: 01/24/18 06:54> Dx/Plan (1) Overdose Code(s): T50.901A - POISONING BY UNSP DRUG/MEDS/BIOL SUBST, ACCIDENTAL, INIT Status: Acute Qualifiers: Injury intent: intentional self-harm (2) Suicidal behavior with attempted self-injury Code(s): T14.91XA - SUICIDE ATTEMPT, INITIAL ENCOUNTER Status: Acute (3) TMJ dislocation Code(s): S03.00XA - DISLOCATION OF JAW, UNSPECIFIED SIDE, INITIAL ENCOUNTER Status: Suspected (4) ADHD Status: Chronic (5) Depression Code(s): F32.9 - MAJOR DEPRESSIVE DISORDER, SINGLE EPISODE, UNSPECIFIED Status : Chronic (6) Elevated CK Status: Acute (7) Methamphetamine use Code(s): F15.10 - OTHER STIMULANT ABUSE, UNCOMPLICATED Status: Suspected (8) Toxic encephalopathy Code(s): G92 - TOXIC ENCEPHALOPATHY Status: Acute (9) Acute respiratory failure with hypoxia Code(s): J96.01 - ACUTE RESPIRATORY FAILURE WITH HYPOXIA Status: Acute (10) Aspiration pneumonia Code(s): J69.0 - PNEUMONITIS DUE TO INHALATION OF FOOD AND VOMIT Status: Acute (11) Low TSH level Code(s): R79.89 - OTHER SPECIFIED ABNORMAL FINDINGS OF BLOOD CHEMISTRY Status : Acute - Plan Plan: This is a 32 yo M being admitted for suspected olanzapine overdose following suicide attempt. 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 No obvious focal deficit at this time, however it is difficult for pt to comply with all evaluation due to level of sedation due to ativan. Will avoid sedatives today and attempt a more thorough evaluation. Resp Pt is off of vent and maintaining O2 sats well. Fever resolved over night. Due to preliminary sputum cultures growing staph aureus, abx were escalated to vanc while sensitivities result. CV BP WNL, no murmurs or hx of cardiac hx. GI OG tube in place, consider starting tube feeds today Hematologic H&H stable /Renal Gaston has been dc'd. Urinary output is good. MSK Concern for possible jaw dislocation. Eval by OMFS pending. Infection Likely aspiration pna, treat as above Endo TSH noted to be low, free T4 pending. This will likely need further work up outpt Lines/Tubes: ET tube in place on 01/22 dc 01/24, Gaston in place on 01/22 dc 01/24 Code status: Full PPx: SCD, lovenox Dispo: Stable. Pt is recovering well at this time. Expect to continue to treat PNA and consult MR for likely psych placement in the next 24-48 hours. <Jorge L Vickers - Last Filed: 01/24/18 06:54> Attending Addendum - Attending Addendum Date/Time: 01/25/18 1028 I personally evaluated the patient and discussed the management with Dr. Dr. Vickers on 01/24/18. I agree with the History, Examination, Assessment and Plan documented above with any addition or exceptions noted below. Correction: Pt is arousable, not abusable. <Charbel Chu - Last Filed: 01/25/18 10:31>
[2018-01-24 07:05] LABS: Hemoglobin 13.3 g/dL (14.0-18.0); Mean Corpuscular HGB CONC 33.7 g/dL (32.0-36.0); Mean Corpuscular Hemoglobin 29.3 pg (27.0-31.0); Mean Platelet Volume 11.5 fL (7.4-10.4); Platelet Count 95 thou/uL (130-400); Red Blood Cell (RBC) Count 4.55 mill/uL (4.70-6.10); White Blood Cell (WBC) Count 14.5 thou/uL (4.8-10.8)
[2018-01-24 07:48] LABS: Anion Gap 13 mmol/L (10-20); BUN (Urea Nitrogen) 6 mg/dL (8.9-20.6); Calc. Creatinine Clearance 142 mL/min (70-130); Calcium 9.5 mg/dL (7.8-10.44); Carbon Dioxide 23 mmol/L (22-29); Chloride 105 mmol/L (98-107); Estimated GFR-MDRD Greater than 90; Glucose 111 mg/dL (70-105); Sodium 138 mmol/L (136-145)
[2018-01-24 07:53] LABS: Potassium 2.9 mmol/L (3.5-5.1)
[2018-01-24] MEDS: Pantoprazole 40 MG VIAL IVP SCH (08:36)
[2018-01-24] MEDS: Enoxaparin Sodium 40 MG/0.4 ML SYRINGE SC SCH (08:46)
[2018-01-24 09:26] LABS: Band 11 % (5-11); Lymphocytes 3 % (21-51); Monocytes 5 % (0-10); Neutrophil 80 % (42-75); Reactive Lymphocytes 1 % (0-10)
[2018-01-24 09:27] LABS: PLT Morphology Comment Appears Decreased
--- NOTE | 2018-01-24 09:53 | PRG ---
DATE OF SERVICE: 01/24/2018 SERVICE: Pulmonary Medicine. INTERVAL HISTORY: The patient is doing fine from a respiratory standpoint. He is on room air satura tion 92%. He is eating and drinking. He has been able to get out of bed into a chair. Otherwise, t here has been no interval change to his condition. PHYSICAL EXAMINATION: VITAL SIGNS: Afebrile with a current temperature of 99.3. Overnight, he had 103.9. Pulse 101, bloo d pressure 128/78, respirations 41, 92% on room air. GENERAL: The patient is awake, alert, no apparent distress. LUNGS: Excellent air entry. Rhonchi are present particularly on the right, but they are better than yesterday. HEART: Normal rate, regular. ABDOMEN: Soft, nontender, nondistended. Bowel sounds are positive. MUSCULOSKELETAL: No cyanosis or clubbing. There is no pitting in the bilateral lower extremities. NEUROLOGIC: Grossly nonfocal. LABORATORY DATA: WBC 14.5, hemoglobin 13.3, platelets 95,000. Potassium 2.9. Basic metabolic profi le is otherwise unremarkable. Creatinine is gently up trending to 1.01. TSH is 0.11. Free T4 is 0. 99. Hepatitis C is nonreactive. Staph aureus is growing in the tracheal aspirate, which demonstrate s wong sensitivities. It is sensitive to the amoxicillin as well as fluoroquinolones. ASSESSMENT: 1. Acute hypoxic respiratory failure. 2. Community-acquired pneumonia, likely polymicrobial with Staph aureus growing in the culture mediu m. 3. Metabolic encephalopathy, resolved. 4. Seizure disorder, possible. 5. Intentional overdose with antipsychotic and/or Adderall, DISCUSSION AND PLAN: The patient is doing fine from a respiratory perspective. I will switch him ov er to an oral fluoroquinolone. He will need to complete a 7-day course of antibiotics. We are going to transition him to the medical unit. [facility] consultation will be placed. From my perspective, he i s stable for transition out of the hospital. Potassium has been replaced today.
[2018-01-24 12:57] LABS: MDiff Complete? YES
[2018-01-24] MEDS: Haloperidol Lactate 5 MG/ML VIAL IM PRN (14:44)
[2018-01-24] MEDS: Lorazepam 2 MG/ML VIAL SLOW IVP PRN (14:58)
[2018-01-24] MEDS ORDERED: Benzonatate 100 MG CAP PO PRN (22:03)
[2018-01-25 05:19] LABS: Mean Corpuscular HGB CONC 34.4 g/dL (32.0-36.0); Mean Corpuscular Hemoglobin 29.5 pg (27.0-31.0); Mean Corpuscular Volume 85.8 fL (78.0-98.0); Mean Platelet Volume 9.9 fL (7.4-10.4); Platelet Count 120 thou/uL (130-400); White Blood Cell (WBC) Count 11.3 thou/uL (4.8-10.8)
[2018-01-25 05:37] LABS: Anion Gap 15 mmol/L (10-20); BUN (Urea Nitrogen) 10 mg/dL (8.9-20.6); Calc. Creatinine Clearance 155 mL/min (70-130); Calcium 9.4 mg/dL (7.8-10.44); Carbon Dioxide 22 mmol/L (22-29); Chloride 105 mmol/L (98-107); Estimated GFR-MDRD Greater than 90; Glucose 107 mg/dL (70-105); Sodium 139 mmol/L (136-145)
[2018-01-25 05:54] LABS: HIV (1/2) Antibody/Antigen Non-Reactive (NonReactive); HIV 1/2 INDEX 0.09 S/CO (<1.00)
[2018-01-25] MEDS ORDERED: Potassium Chloride 20 MEQ TAB PO SCH ×2 (06:11→12:00)
[2018-01-25 06:20] LABS: Band 16 % (5-11); Eosinophils 3 % (0-10); Lymphocytes 11 % (21-51); MDiff Complete? YES; Monocytes 6 % (0-10); Neutrophil 64 % (42-75)
--- NOTE | 2018-01-25 06:36 | PDOC.FM ---
- Subjective Subjective: 32 yo M here following a zyprexa overdose. He remains extubated and was evaluated by [facility] yesterday. He was found to be suicidal yesterday and is currently waiting for a bed at [place]. Due to aggressive behavior pt continues to need periodic haldol. There were no acute events over night. Pt denies any new problems/symptoms. - Objective MAR Reviewed: Yes Vital Signs & Weight: Vital Signs (12 hours) Temp Pulse Resp Pulse Ox 01/25/18 04:00 99.0 F 01/25/18 00:00 99.8 F H 01/24/18 22:08 100.6 F H 01/24/18 20:00 98.8 F 100 18 93 L Weight Admit Weight 99.5 kg Weight 95.3 kg Most Recent Monitor Data Heart Rate from ECG 85 NIBP 127/82 NIBP BP-Mean 102 Respiration from ECG 36 SpO2 95 I&O: 01/23/18 01/24/18 01/25/18 06:59 06:59 06:59 Intake Total 4119.7 2256 1913 Output Total 3761 3985 1175 Balance 358.7 -1729 738 Result Diagrams: 01/25/18 04:47 01/25/18 04:47 <Jorge L Vickers - Last Filed: 01/25/18 06:34> - Objective Vital Signs & Weight: Vital Signs (12 hours) Temp Pulse Resp BP Pulse Ox 01/25/18 11:30 98.4 F 103 H 18 138/86 95 01/25/18 07:26 98.9 F 95 24 H 96 01/25/18 04:00 99.0 F Weight Admit Weight 99.5 kg Weight 95.3 kg Most Recent Monitor Data Heart Rate from ECG 80 NIBP 143/82 NIBP BP-Mean 114 Respiration from ECG 34 SpO2 91 I&O: 01/24/18 01/25/18 01/26/18 06:59 06:59 06:59 Intake Total 2256 2033 240 Output Total 3985 1175 Balance -1729 858 240 Result Diagrams: 01/25/18 04:47 01/25/18 04:47 <Charbel Chu - Last Filed: 01/25/18 12:33> Phys Exam - Physical Examination Constitutional: NAD HEENT: moist MMs, sclera anicteric Neck: full ROM Respiratory: clear to auscultation bilateral Cardiovascular: RRR, no significant murmur Gastrointestinal: soft, non-tender, no distention, positive bowel sounds Musculoskeletal: no edema Neurological: non-focal, moves all 4 limbs Psychiatric: normal affect, A&O x 3 Skin: no rash, normal turgor <Jorge L Vickers - Last Filed: 01/25/18 06:34> Dx/Plan (1) Overdose Code(s): T50.901A - POISONING BY UNSP DRUG/MEDS/BIOL SUBST, ACCIDENTAL, INIT Status: Acute Qualifiers: Injury intent: intentional self-harm (2) Suicidal behavior with attempted self-injury Code(s): T14.91XA - SUICIDE ATTEMPT, INITIAL ENCOUNTER Status: Acute (3) TMJ dislocation Code(s): S03.00XA - DISLOCATION OF JAW, UNSPECIFIED SIDE, INITIAL ENCOUNTER Status: Suspected (4) ADHD Status: Chronic (5) Depression Code(s): F32.9 - MAJOR DEPRESSIVE DISORDER, SINGLE EPISODE, UNSPECIFIED Status : Chronic (6) Elevated CK Status: Acute (7) Methamphetamine use Code(s): F15.10 - OTHER STIMULANT ABUSE, UNCOMPLICATED Status: Suspected (8) Toxic encephalopathy Code(s): G92 - TOXIC ENCEPHALOPATHY Status: Acute (9) Acute respiratory failure with hypoxia Code(s): J96.01 - ACUTE RESPIRATORY FAILURE WITH HYPOXIA Status: Acute (10) Aspiration pneumonia Code(s): J69.0 - PNEUMONITIS DUE TO INHALATION OF FOOD AND VOMIT Status: Acute (11) Low TSH level Code(s): R79.89 - OTHER SPECIFIED ABNORMAL FINDINGS OF BLOOD CHEMISTRY Status : Acute - Plan Plan: This is a 32 yo M being admitted for suspected olanzapine overdose following suicide attempt. Consults: Pulm, OMFS RUNNING RIGGER Patient is moving all 4 limbs with good strength. No obvious focal deficit at this time. Appears to be at baseline Resp Pt doing well off of vent. No concerns for respiratory distress CV BP WNL, no murmurs or hx of cardiac hx. GI Tolerating PO without issue Hematologic H&H stable /Renal Urinary output is good. MSK At this time there is low concern for TMJ dislocation he has full rom without pain or tenderness. Infection Aspiration PNA. Cultures have resulted in MSSA. Pt was started on a 7 day course of levaquin on 01/25 Endo TSH noted to be low, free T4 WNL. Will need further monitoring in outpt setting. Psych A&O x4. Denies suicidality this am, however this fluctuates often. Awaiting placement in [facility] per [facility] recommendation Lines/Tubes: ET tube in place on 01/22 dc 01/24, Gaston in place on 01/22 dc 01/24 Code status: Full PPx: SCD, lovenox Dispo: Stable. Pt is recovering well at this time. Continue to treat PNA while waiting for placement <Jorge L Vickers - Last Filed: 01/25/18 06:34> Attending Addendum - Attending Addendum Date/Time: 01/25/18 1233 I personally evaluated the patient and discussed the management with Dr. Vickers. I agree with the History, Examination, Assessment and Plan documented above with any addition or exceptions noted below. <Charbel Chu - Last Filed: 01/25/18 12:33>
[2018-01-25] MEDS: Enoxaparin Sodium 40 MG/0.4 ML SYRINGE SC SCH (08:38)
--- NOTE | 2018-01-25 10:25 | PRG ---
DATE OF SERVICE: 01/25/2018 SERVICE: Pulmonary Medicine INTERVAL HISTORY: The patient is doing fine from a respiratory standpoint. He remains on room air. Denies any chest pain, nausea, vomiting, fevers or chills. [facility] evaluated him. The patient is wait ing on a bed at [facility]. He is going to be committed if he chooses not to go. Otherwi se, there has been no interval change to his condition. PHYSICAL EXAMINATION: VITAL SIGNS: Afebrile, pulse 95, blood pressure 143/82, respirations 34, saturation 99% on room air. GENERAL: The patient is awake and alert, in no apparent distress. LUNGS: Decent air entry. Rhonchi are present, but much improved. No prolonged expiratory phase, wh eezing or crackles are appreciated. HEART: Normal rate, regular. ABDOMEN: Soft, nontender, nondistended. Bowel sounds are positive. MUSCULOSKELETAL: No cyanosis or clubbing. No pitting in the bilateral lower extremities. NEUROLOGIC: Grossly nonfocal. LABORATORY DATA: WBC 11.3, hemoglobin 13.0, platelets 120,000. Potassium 3.0. Basic metabolic prof ile is otherwise unremarkable. HIV is nonreactive. ASSESSMENT: 1. Acute hypoxic respiratory failure. 2. Community-acquired pneumonia secondary to methicillin-susceptible Staphylococcus aureus, but like ly polymicrobial. 3. Metabolic encephalopathy, resolved. 4. Seizure disorder, possible. 5. Intentional drug overdose with antipsychotic and/or Adderall, DISCUSSION AND PLAN: The patient is stable for transition out of the ICU to the medical unit. [facility] will continue to follow if he remains in this location. When he arrived on the ga oor, I will sign off. He needs a repeat chest x-ray in 4-6 weeks in the outpatient setting to verify the infiltrate resolves. We will replace potassium once again and give him a lab holiday in the [facility], [place].
[2018-01-25] MEDS: Haloperidol Lactate 5 MG/ML VIAL IM PRN ×2 (12:25→19:35)
[2018-01-25 12:42] VITALS: BMI 26.9
[2018-01-25 21:07] VITALS: BP 137/80; TEMP 98.8
[2018-01-28 13:12] LABS: Hep B Surface AG-Rflx Sendout Negative (Negative); Hepatitis B Core IgM AB Negative (Negative); Hepatitis B Core Total Negative (Negative); Hepatitis B Surface AB-Sendout Reactive (.)
== END 2018-01-25 19:47 | DRG 208 ==
LOC: ERS 20:06 → CCU 01-22 01:37 → T4-B 01-25 11:42
PROVIDERS: ADMIT Internal Medicine; ATTEND Internal Medicine
PROC: 5A1945Z Respiratory Ventilation, 24-96 Consecutive Hours (ICD-10-PCS; principal; 2018-01-22)
DX: J96.01 Acute respiratory failure with hypoxia (principal); G92 Toxic encephalopathy; J69.0 Pneumonitis due to inhalation of food and vomit; T43.592A Poisoning by other antipsychotics and neuroleptics, intentional self-harm, initial encounter; J96.02 Acute respiratory failure with hypercapnia; F90.9 Attention-deficit hyperactivity disorder, unspecified type; F32.9 Major depressive disorder, single episode, unspecified; F15.90 Other stimulant use, unspecified, uncomplicated; R79.89 Other specified abnormal findings of blood chemistry; F41.9 Anxiety disorder, unspecified; T14.91XA Suicide attempt, initial encounter; F17.210 Nicotine dependence, cigarettes, uncomplicated; S03.02XA Dislocation of jaw, left side, initial encounter
CPT/HCPCS: 36415; 36416; 51702; 70450; 71045; 80048; 80053; 80306; 80307; 81003; 82550; 82805; 84439; 84443; 85025; 86704; 86705; 86706; 86707; 86803; 87040; 87070; 87077; 87086; 87186; 87205; 87340; 87350; 87389; 89220; 93005; 94002; 94003; 94760; 96365; 96366; 96368; A4216; C9113; J0295; J1630; J1650; J2060; J2704; J3010; J3370; J7050